=== PATIENT | female | born 1970 | race Caucasian/White ===

== ENCOUNTER 2016-09-23 07:28 | Day surgery (SDC) | payer BC ==
[2016-09-23] MEDS ORDERED: Lactated Ringers 1,000 ML IV SCH (08:15)
[2016-09-23] MEDS ORDERED: Propofol 200 MG/20 ML SDV IV ONE (09:00)
[2016-09-23] MEDS ORDERED: Midazolam 1 MG/ML 2 ML SDV IV ONE (09:00)
[2016-09-23] MEDS ORDERED: Lidocaine 2% 100 MG/5 ML Syringe IVPUSH ONE (09:00)
--- NOTE | 2016-09-23 09:36 | PCM.OPNOTE ---
- General Post-Op/Procedure Note Date of Surgery/Procedure: 09/23/16 Operative Procedure(s): egd with bx Findings: gastritis esophagitis Pre Op Diagnosis: gerd Post-Op Diagnosis: gastritis. esophagitis Anesthesia Technique: MAC Primary Surgeon: Ramírez Schmidt Anesthesia Provider: Maryse Warren Pathology: stomach and esophagus Complications: None Condition: Good Free Text/Narrative:: see dictation
[2016-09-23 10:17] VITALS: BP 106/56
--- NOTE | 2016-09-23 13:48 | OR ---
DATE OF OPERATION: 09/23/2016 SURGEON: Ramírez Schmidt MD PROCEDURE PERFORMED: EGD with cold forceps biopsy. PREOPERATIVE DIAGNOSIS: Gastroesophageal reflux disease. POSTOPERATIVE DIAGNOSIS: Esophagitis and gastritis. INDICATIONS FOR PROCEDURE: This is a 45-year-old white female, who was referred with the above-mentioned complaints. She was offered and accepted EGD. DESCRIPTION OF OPERATION: After an excellent IV sedation was administered, the bite block was inserted. The flexible endoscope was passed without difficulty down the patient's esophagus into the stomach. The stomach was insufflated. The scope was passed through the pylorus to the second portion of the duodenum and then slowly withdrawn. The following findings were noted: The duodenum was unremarkable. Stomach demonstrated diffuse gastritis. Multiple biopsies were taken. GE junction measured approximately 38 cm, and proximal to this, there was approximately 3 cm of erythematous mucosa in the esophagus. This was biopsied as well. The remainder of the esophageal exam was unremarkable. The stomach was deflated, scope was removed. The patient was taken to recovery room in good condition. /[id number] /MODL
== END 2016-09-23 10:41 | disposition home or self-care (01) ==
LOC: FB.SDS 07:28
PROVIDERS: ATTEND Surgery
PROC: 0DB38ZX Excision of Lower Esophagus, Via Natural or Artificial Opening Endoscopic, Diagnostic (ICD-10-PCS; principal; 2016-09-23)
PROC: 0DB68ZX Excision of Stomach, Via Natural or Artificial Opening Endoscopic, Diagnostic (ICD-10-PCS; 2016-09-23)
DX: K29.70 Gastritis, unspecified, without bleeding (principal); K21.0 Gastro-esophageal reflux disease with esophagitis; Z79.899 Other long term (current) drug therapy
CPT/HCPCS: 43239; 81025; 88305; 88313; 88342; J2250; J2704; J7120

== ENCOUNTER 2019-04-18 07:32 | Day surgery (SDC) | payer BC ==
[~2019-04-18 07:32] MED LIST: Sodium Chloride 0.9% 10 ML Syringe FLUSH PRN
[2019-04-18] MEDS ORDERED: Ondansetron 4 MG/2 ML SDV IVPUSH ONE (07:33)
[2019-04-18] MEDS ORDERED: Propofol 200 MG/20 ML SDV IV ONE (07:33)
[2019-04-18] MEDS ORDERED: Lidocaine 2% 5 ML SDV INJECT ONE (07:33)
[2019-04-18] MEDS: Lactated Ringers 1,000 ML IV SCH (08:27)
--- NOTE | 2019-04-18 09:35 | PCM.OPNOTE ---
- General Post-Op/Procedure Note Date of Surgery/Procedure: 04/18/19 Operative Procedure(s): egd with biopsy Findings: gastritis esophagitis Pre Op Diagnosis: esophagitis Post-Op Diagnosis: gastritis. esophagitis Anesthesia Technique: BRITTON Primary Surgeon: Ramírez Schmidt Anesthesia Provider: Sarika Weiss Pathology: stomach and esophagus Complications: None Condition: Good Free Text/Narrative:: see dictation
[2019-04-18 10:35] VITALS: BP 106/55; PULSE 43
--- NOTE | 2019-04-18 15:42 | OR ---
DATE OF OPERATION: 04/18/2019 SURGEON: Ramírez Schmidt MD PROCEDURE PERFORMED: Esophagogastroduodenoscopy with cold forceps biopsy. PREOPERATIVE DIAGNOSIS: Esophagitis. POSTOPERATIVE DIAGNOSIS: Gastritis and esophagitis. INDICATIONS FOR PROCEDURE: This is a 48-year-old white female with a history of persistent reflux symptoms despite PPI treatment. She has been offered and accepted an EGD to re-evaluate her esophagus. DESCRIPTION OF OPERATION: After an excellent IV sedation was administered, the bite block was inserted. The flexible endoscope was passed without difficulty down the patient's esophagus into the stomach. The stomach was insufflated. Scope passed through the pylorus, second portion of the duodenum and slowly withdrawn. Following findings were noted: Duodenum was unremarkable. Stomach demonstrated some diffuse gastritis, biopsies were taken. Esophagus had some mild erythema noted in the distal esophagus involving the distal 2 to 3 cm. This was not marked. Remainder of the esophageal exam was unremarkable. Stomach was deflated. Scope was removed. Patient tolerated the procedure well, was taken to recovery in good condition. /[id number] /MINA
== END 2019-04-18 10:10 | disposition home or self-care (01) ==
LOC: FB.SDS 07:32
PROVIDERS: ATTEND Surgery
DX: K21.0 Gastro-esophageal reflux disease with esophagitis (principal); K29.50 Unspecified chronic gastritis without bleeding; Z79.899 Other long term (current) drug therapy
CPT/HCPCS: 81025; 88305; 88313; 88342; J2001; J2405; J2704; J7120

== ENCOUNTER 2020-08-27 07:07 | Day surgery (SDC) | payer BC ==
[2020-08-27] MEDS ORDERED: Midazolam 1 MG/ML 2 ML SDV IV ONE (07:08)
[2020-08-27] MEDS ORDERED: Propofol 200 MG/20 ML SDV IV ONE (07:08)
[2020-08-27] MEDS ORDERED: Lidocaine 2% 100 MG/5 ML Syringe IVPUSH ONE (07:08)
[2020-08-27] MEDS ORDERED: Lactated Ringers 1,000 ML IV SCH (07:30)
[2020-08-27] MEDS ORDERED: Sodium Chloride 0.9% 10 ML Syringe FLUSH PRN (07:30)
[2020-08-27] MEDS ORDERED: ceFAZolin 1 GM Vial IVPUSH ONE (08:00)
--- NOTE | 2020-08-27 09:22 | PCM.OPNOTE ---
- General Post-Op/Procedure Note Date of Surgery/Procedure: 08/27/20 Operative Procedure(s): egd with cold forceps biopsy. c scope Findings: gastritis fundic gland polyp nl colon Pre Op Diagnosis: anemia. hx of gastritis Post-Op Diagnosis: gastritis. fundic gland polyp. nl colon Anesthesia Technique: MAC Primary Surgeon: Ramírez Schmidt Anesthesia Provider: Maryse Warren Pathology: stomach Complications: None Condition: Good Free Text/Narrative:: see dictation
[2020-08-27 09:31] VITALS: PULSE 50
[2020-08-27 09:50] VITALS: BP 117/67
--- NOTE | 2020-08-27 12:19 | OR ---
DATE OF OPERATION: 08/27/2020 SURGEON: Ramírez Schmidt MD PROCEDURE PERFORMED: Esophagogastroduodenoscopy with cold forceps biopsy and colonoscopy. PREOPERATIVE DIAGNOSES: Anemia with history of chronic gastritis. POSTOPERATIVE DIAGNOSES: 1. Gastritis. 2. Fundic gland hyperplasia. 3. Normal colonoscopy. INDICATIONS FOR PROCEDURE: This is a 49-year-old white female referred with a history of some anemia. She has a known history of gastritis in the past. She was offered and accepted an upper and lower endoscopy. Stool guaiac was negative. DESCRIPTION OF OPERATION: After an excellent IV sedation was administered, bite block was inserted, flexible endoscope was passed without difficulty down the patient's esophagus into the stomach. The stomach was insufflated, scope passed through the pylorus to the second portion of the duodenum and then slowly withdrawn. The following findings were noted. Duodenum was unremarkable. Stomach, some diffuse very mild gastritis noted. Occasional fundic gland polyp was encountered. Random biopsies were taken of the mucosa and a sales representative education courses biopsy was taken of 1 of the few polyps that were identified to confirm diagnosis. GE junction measured at 40 cm and the esophagus was essentially unremarkable. The stomach was deflated and the scope was removed. Our attention was then turned to the patient's colon. Digital rectal exam was performed. No marked abnormality was noted. Flexible colonoscope was then inserted and advanced without difficulty to the cecum. After identifying the cecum by normal anatomic markers as well as an indentation on palpation in the right lower quadrant, the scope was slowly withdrawn. The following findings were noted. Ascending colon, unremarkable. Transverse colon, unremarkable. Descending colon, unremarkable. Sigmoid and rectum, unremarkable. The patient tolerated the procedure well, was taken to recovery. Results will be sent to her via letter. /[id number] /MODL
== END 2020-08-27 10:02 | disposition home or self-care (01) ==
LOC: FB.SDS 07:07
PROVIDERS: ATTEND Surgery
DX: K29.50 Unspecified chronic gastritis without bleeding (principal); K31.7 Polyp of stomach and duodenum; D50.9 Iron deficiency anemia, unspecified; Z79.899 Other long term (current) drug therapy
CPT/HCPCS: 00813-QZ; 81025; 88305; 88342; J2250; J2704; J7120